=== PATIENT | male | born 1955 ===

== ENCOUNTER 2024-10-19 06:02 | Day surgery (SDC) | payer OTHER ==
[2024-10-15 11:01] VITALS: BP 163/81
[~2024-10-19] VITALS: Ht 177.8 cm; Wt 77.1 kg
[~2024-10-19 06:02] MED LIST: CRESTOR40 MG PO; GLIMEPIRIDE4 MG; LANTUS SOL100 UNIT/1; PAXIL CR25 MG PO
[2024-10-19] MEDS ORDERED: CEFAZOLIN SODIUM 1,000 MG VIAL ONE (07:19)
[2024-10-19] MEDS ORDERED: BUPIVACAINE HCL/MPF 0.5% 30ML VIAL ONE (07:39)
[2024-10-19] MEDS ORDERED: LIDOCAINE HCL 1% 20 ML VIAL IJ ONE (07:40)
[2024-10-19] MEDS ORDERED: LIDOCAINE HCL 1%/EPINEPHRINE 20ML VIAL IJ ONE (07:48)
[2024-10-19] MEDS ORDERED: HEPARIN SODIUM,PORCINE/PF 100 UNIT/ML SYRINGE IV ONE (07:48)
[2024-10-19] MEDS ORDERED: TRAM1TAB98 PO (09:11)
== END 2024-10-19 11:10 | disposition home or self-care (01) ==
LOC: CIR.AMB 06:02
PROVIDERS: ATTEND Surgery
DX: C18.2 Malignant neoplasm of ascending colon (principal); C78.7 Secondary malignant neoplasm of liver and intrahepatic bile duct; E11.9 Type 2 diabetes mellitus without complications; I10 Essential (primary) hypertension
CPT/HCPCS: 36561; C1751